=== PATIENT | male | born 1975 | race Caucasian/White ===

== ENCOUNTER 2022-01-15 17:03 | Outpatient (CLI) | payer OTHER, SELFPAY | END 2022-01-15 17:04 | disposition home or self-care (01) | LOC: AMB 01-29 08:22 | PROVIDERS: Visit Provider Family Medicine | DX: R20.2 Paresthesia of skin (principal); T59.91XA Toxic effect of unspecified gases, fumes and vapors, accidental (unintentional), initial encounter; Y92.411 Interstate highway as the place of occurrence of the external cause | CPT/HCPCS: A0998 ==